=== PATIENT | male | born 1945 | race Caucasian/White ===

== ENCOUNTER 2022-04-03 10:36 | Emergency (ER) | payer MEDICARE, SELFPAY ==
--- NOTE | ~2022-04-03 | XR_ITS ---
[id number] DATE: 04/03/2022 11:33 INDICATION: Fall 2 days ago. Right rib pain. TECHNIQUE: PA chest. 4 views of right ribs. COMPARISON: None FINDINGS: There is a slightly displaced recent fracture of the anterolateral aspect of the right sixt h rib additional nondisplaced rib fractures are not excluded. No pleural effusion or pneumothorax. No pulmonary infiltrate or consolidation. Normal heart size. Aortic arch calcification. IMPRESSION: Minimally displaced anterolateral right sixth rib fracture; additional nondisplaced rib f ractures are not excluded No active cardiac pulmonary disease, pleural effusion or pneumothorax Reviewed, dictated and finalized at [facility] Reviewed, dictated and finalized at [facility] IMPRESSION: Minimally displaced anterolateral right sixth rib fracture; additio nal nondisplaced rib fractures are not excluded No active cardiac pulmonary disease, pleural effusion or pneumothorax
[2022-04-03 10:45] VITALS: BP 149/70; PULSE 59; RESP 18; TEMP 35.8; O2SAT 99
--- NOTE | 2022-04-03 11:07 | ED.GENADULT ---
HPI - General Adult General Chief complaint: Fall Stated complaint: R sided rib/back pain after fall History of Present Illness HPI narrative: The patient is a 77-year-old male who fell 2 days ago, landing on his right elbow and rib cage. He subsequently developed pain in the right rib area especially worsened by nose blowing or coughing or movement. No dyspnea. Did have minor abrasion in the right elbow and right knee. Has taken Tylenol then ibuprofen without much relief. No anterior chest pain or substernal chest pain. No neck or back pain. Ambulatory. No other complaints. Related Data Home Medications Medication Instructions Recorded Confirmed atorvastatin 20 mg tablet 20 mg PO QHS 04/03/22 04/03/22 famotidine 20 mg tablet 20 mg PO QAM 04/03/22 04/03/22 gabapentin 300 mg capsule 300 mg PO BID 04/03/22 04/03/22 losartan 100 mg tablet 100 mg PO DAILY 04/03/22 04/03/22 primidone 50 mg tablet 100 mg PO BID 04/03/22 04/03/22 Allergies Allergy/AdvReac Type Severity Reaction Status Date / Time Penicillins Allergy Rash Verified 04/03/22 11:10 Review of Systems Review of Systems: All systems reviewed & are unremarkable except as noted in HPI and below Constitutional: Constitutional: Reports no additional constitutional complaints, Denies anorexia, Denies body ache(s), Denies chills, Denies excessive sweating, Denies fatigue, Denies fever(s), Denies frequent falls, Denies headache(s), Denies malaise and Denies poor appetite Comments: did have one fall 2 days ago Eyes: Eyes: Reports no additional eye complaints, Denies blurry vision, Denies change in vision, Denies irritation, Denies itchy eyes and Denies photophobia ENT: Reports system reviewed and no additional complaints, except as documented, Reports Normal hearing present, Denies change in voice, Denies dysphagia, Denies vertigo, Denies dizziness, Denies ear discharge, Denies headache(s), Denies hearing loss, Denies hoarseness, Denies nasal congestion, Denies neck pain, Denies sinus pressure, Denies sore throat and Denies throat swelling Cardiovascular: Cardiovascular: Reports no additional cardiovascular complaints, Reports chest pain (at right lateral chest, worse with coughing), Denies syncope, Denies rapid heart rate, Denies irregular heart rhythm, Denies leg edema, Denies dyspnea and Denies slow heart rate Respiratory: Respiratory: Reports no additional respiratory complaints, Denies cough, Denies dyspnea, Denies stridor and Denies wheezing Comments: no pleuritic chest pain component Gastrointestinal: Gastrointestinal: Reports no additional gastrointestinal complaints, Denies abdominal pain, Denies melena, Denies hematochezia, Denies dysphagia, Denies diarrhea, Denies nausea and Denies vomiting Genitourinary: Genitourinary: Denies hematuria, Denies oliguria, Denies dysuria, Denies flank pain, Denies urinary frequency and Denies urinary urgency Musculoskeletal: Musculoskeletal: Reports no additional musculoskeletal complaints, Denies abnormal gait, Denies back pain, Denies myalgias, Denies arthralgias, Denies joint swelling, Denies limited range of motion, Denies muscle cramps, Denies muscle weakness, Denies neck pain and Denies numbness Integumentary/Breasts: Skin/Breast: Reports system reviewed and no additional complaints, except as docu, Denies breast pain, Denies change in pigmentation, Denies pruritus, Denies erythema and Reports wounds (minor abrasions R elbow and R knee, superficial) Neurologic: Reports system reviewed and no additional complaints, except as documented, Reports Normal hearing present, Denies Abnormal speech present, Denies abnormal gait, Denies confusion, Denies vertigo, Denies dizziness, Denies syncope, Denies frequent falls, Denies headache(s), Denies focal weakness, Denies numbness and Denies paresthesias Psychiatric: Psychiatric: Reports no additional psychiatric complaints and Denies confusion Endocrine: Endocrine: Reports no additional end
[2022-04-03] MEDS: IBUPROFEN 400 MG TABLET 800 MG PO (11:34)
[2022-04-03] MEDS: ACETAMINOPHEN 500 MG TABLET 1000 MG PO (11:34)
[2022-04-03] MEDS: traMADol HCL (*CRX) 50 MG TABLET 100 MG PO (12:55)
[2022-04-03 13:04] VITALS: BP 142/66; PULSE 68; RESP 16; TEMP 36.1; O2SAT 98
== END 2022-04-03 13:07 | disposition home or self-care (01) ==
PROVIDERS: Emergency Provider Emergency Medicine
DX: S22.31XA Fracture of one rib, right side, initial encounter for closed fracture (principal); W19.XXXA Unspecified fall, initial encounter
CPT/HCPCS: 71101; 99283; A9270